=== PATIENT | male | born 1970 | race Caucasian/White ===

== ENCOUNTER 2018-05-11 06:07 | Emergency (ER) | payer MEDICARE, SELFPAY ==
[2018-05-11 06:08] VITALS: BP 161/100; PULSE 95; RESP 20; TEMP 36.6; O2SAT 98; BMI 31.6
--- NOTE | 2018-05-11 06:41 | ED.DCSUM_ITS ---
- ER Visit Summary Date of Service: 05/11/18 Chief Complaint: Back pain History of Present Illness: The patient is a 47 M sudden increasing left lower back pain rating down his leg 15 minutes prior to arrival. History of 5 back surgeries in the past, most recent was a year ago. No loss of bowel or bladder control. Last surgeon is Dr. English, has an appointment in 1 week. States no current medications prescribed for his back pain. Last seen his surgeon and of last year. Has intermittent flares states goes to the ED gets pain injections. Denies history of gastric ulcers or kidney injury. No heavy lifting or new activities prior to symptoms. No other complaints. Physical Examination: General: Alert and oriented ?3, no acute distress HEENT: Normocephalic, atraumatic. Moist mucosa membranes Neck: supple, nontender. Cardiovascular: Regular rate and rhythm, no murmurs Respiratory: Normal breath sounds, symmetric, no distress Abdomen: Soft, nontender, nondistended Back: Tender palpation left paralumbar, straight leg test negative. 1+ patellar reflex bilaterally. Extremities: Nontender, no edema, pulses intact ?4 Neuro: no focal neurological deficits. Test Results: [] Emergency Department Course and Treatment: Patient no cauda equina symptoms. No falls or direct injuries. Discuss acute on chronic back symptoms with his surgical history. Given Toradol and Norflex and morphine injection. Prescription for NSAIDs and muscle relaxers. He will follow-up with his surgeon as scheduled. Treatment Plan: [] Disposition: Discharge Impression: Acute on chronic back pain This note was generated with [employer] dictation software. It may contain incorrect words, spelling, and punctuation that were not noted in review of the chart prior to signing ED Disposition - Plan for ED Patient: Disposition: Home or Assisted Living Chief Complaint: Back Diagnosis: Acute exacerbation of chronic low back pain Instructions: ED Sciatica Prescriptions: Orphenadrine [Norflex ER] 100 mg PO BID PRN #10 tablet PRN Reason: back pain Ibuprofen 600 mg PO 4X/DAY #30 tablet Referrals: [facility] Doctor,Out of [NON-STAFF] - Additional Instructions: Follow-up with your surgeon as scheduled.
[2018-05-11] MEDS: Morphine 4 MG/ML Syringe SC (06:43)
[2018-05-11] MEDS: Ketorolac 60 MG/2 ML Vial IM (06:43)
[2018-05-11] MEDS: Orphenadrine 60 MG/2 ML Ampul IM (06:43)
[2018-05-11 07:03] VITALS: BP 135/84; PULSE 72; RESP 15; O2SAT 98
== END 2018-05-11 07:04 | disposition home or self-care (01) ==
PROVIDERS: Emergency Provider Emergency Medicine; Family Provider Family Medicine; PCP Family Medicine
DX: G89.29 Other chronic pain (principal); M54.9 Dorsalgia, unspecified
CPT/HCPCS: 99282